=== PATIENT | female | born 1985 | race Caucasian/White ===

== ENCOUNTER 2016-07-25 18:35 | Emergency (ER) | payer OTHER ==
[~2016-07-25] VITALS: Ht 157.5 cm; Wt 45.5 kg
[2016-07-25 19:07] VITALS: Ht 157.5 cm; Wt 45.5 kg
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
[2016-07-25] MEDS ORDERED: ACET325T33 PO (20:55)
[2016-07-25] MEDS ORDERED: MECL12.574 PO (20:55)
[2016-07-25] MEDS ORDERED: NAPR-260 PO (20:55)
[2016-07-25] MEDS ORDERED: CYCL-319 PO (20:55)
[2016-07-25] MEDS ORDERED: ACETAMINOPHEN 325 MG TAB PO ONE (21:00)
== END 2016-07-25 21:06 | disposition home or self-care (01) ==
LOC: FTE 18:35
DX: S06.0X0A Concussion without loss of consciousness, initial encounter (principal); R42 Dizziness and giddiness; V89.2XXA Person injured in unspecified motor-vehicle accident, traffic, initial encounter
CPT/HCPCS: Z7502; Z7610; 99283